=== PATIENT | male | born 1960 | race Caucasian/White ===

== ENCOUNTER 2020-12-13 07:30 | Emergency (ER) | payer BC ==
[~2020-12-13] VITALS: Ht 188 cm; Wt 79.4 kg
[2020-12-13 07:55] LABS: BASOPHILS ABSOLUTE AUTO 0.03 K/mm3 (0.00-0.23); BASOPHILS PERCENT AUTO 1 % (0-2); EOSINOPHILS ABSOLUTE AUTO 0.01 K/mm3 (0.00-0.68); EOSINOPHILS PERCENT AUTO 0 % (0-6); Hematocrit 41.1 % (37.0-53.0); Hemoglobin 13.7 g/dL (13.5-17.5); IMMATURE GRAN PERCENT AUTO 0 % (0-1); LYMPHOCYTES ABSOLUTE AUTO 1.12 K/mm3 (0.84-5.20); LYMPHOCYTES PERCENT AUTO 21 % (21-46); MONOCYTES PERCENT AUTO 26 % (4-13); Mean Corpuscular HGB 31.6 pg (26.0-34.0); Mean Corpuscular HGB Conc 33.3 g/dL (31.5-36.5); Mean Corpuscular Volume 95 fL (80-100); Mean Platelet Volume 9.9 fL (9.1-12.4); NEUTROPHILS ABSOLUTE AUTO 2.82 K/mm3 (1.96-9.15); NEUTROPHILS PERCENT AUTO 52 % (41-73); Platelet Count 152 K/mm3 (150-400); RDW Coefficient Variation 12.9 % (11.7-14.2); RDW Standard Deviation 44.7 fL (35.1-46.3); Red Blood Cell Count 4.34 M/mm3 (4.30-5.90); White Blood Cell Count 5.38 K/mm3 (4.00-11.30)
[2020-12-13 08:15] LABS: Alanine Aminotransfer (ALT/SGP 24 U/L (12-78); Albumin, Blood 3.4 g/dL (3.4-5.0); Albumin/Globulin Ratio 1.2 (0.8-1.8); Alk Phos 32 U/L (50-136); Anion Gap 5 mmol/L (6-16); Aspartate Aminotrans (AST/SGOT 21 U/L (12-37); Blood Urea Nitrogen 16 mg/dL (8-24); Bun/Creatinine Ratio 17.3 (12.0-20.0); CO2, Blood 28 mmol/L (21-32); Calcium, Blood 8.1 mg/dL (8.5-10.1); Chloride, Blood 108 mmol/L (98-108); Creatinine, Blood 0.92 mg/dL (0.60-1.20); Globulin, Blood 2.9 g/dL (2.2-4.0); Glomerular Filtration Rate >60 (60-); Glucose, Blood 115 mg/dL (70-99); Potassium, Blood 3.8 mmol/L (3.5-5.5); Sodium, Blood 141 mmol/L (136-145); Total Protein, Blood 6.3 g/dL (6.4-8.2)
[2020-12-13] MEDS ORDERED: IBUP800 PO (10:28)
[2020-12-13] MEDS ORDERED: TRAM50 PO (10:28)
[2020-12-13] MEDS ORDERED: ONDA4ODT MM (10:28)
== END 2020-12-13 11:01 | disposition home or self-care (01) ==
LOC: ER 07:30
PROVIDERS: Emergency Medicine
DX: R55 Syncope and collapse (principal)
CPT/HCPCS: 74177; 80053; 83690; 85025; 93005; 93010; 96374; 96375; 99285-25; J1885; J2405; J3010; J7030; Q9967